=== PATIENT | female | born 1995 | race African-American/Black ===

== ENCOUNTER 2017-02-22 21:46 | Emergency (ER) | payer MEDICAID, OTHER ==
[~2017-02-22] VITALS: Ht 160 cm; Wt 66.0 kg
[2017-02-22] MEDS ORDERED: SODIUM CHLORIDE 0.9% 1,000 ML IV ONE (22:31)
[2017-02-22 23:27] LABS: CLARITY URINE CLOUDY (CLEAR); COLOR URINE YELLOW (YELLOW); GLUCOSE URINE NEGATIVE (NEGATIVE); KETONES URINE 1+ (NEGATIVE); LEUKOCYTE ESTERASE URINE 3+ (NEGATIVE); NITRITE URINE NEGATIVE (NEGATIVE); OCCULT BLOOD URINE TRACE (NEGATIVE); PROTEIN URINE NEGATIVE (NEGATIVE); SPECIFIC GRAVITY URINE 1.016 (1.005-1.030); UROBILINOGEN URINE 0.2 E.U./dL (0.2-1.0)
[2017-02-22 23:40] LABS: *BARBITURATES SCREEN URINE NEGATIVE (NEGATIVE); *BENZODIAZEPINES SCREEN URINE NEGATIVE (NEGATIVE); *COCAINE SCREEN URINE NEGATIVE (NEGATIVE); METHADONE URINE SCREEN NEGATIVE (NEGATIVE); OPIATES URINE SCREEN NEGATIVE (NEGATIVE); PHENCYCLIDINE URINE SCREEN NEGATIVE (NEGATIVE)
[2017-02-22 23:49] LABS: HEMATOCRIT. 42.5 % (36.0-48.0); MEAN CORPUSCULAR HEMOGLOBIN 28.7 pg (28.0-32.0); MEAN CORPUSCULAR VOLUME 87.4 fL (81.0-99.0); MEAN PLATELET VOLUME 10.4 fl (7.4-10.4); PLATELET 207 x1000/uL (130-400); RED BLOOD CELL COUNT 4.87 mill/uL (4.2-5.4); RED CELL DISTRIBUTION WIDTH 14.3 % (11.6-14.6)
[2017-02-22 23:58] LABS: CHLORIDE 105 mEq/L (98-107)
[2017-02-22 23:58] LABS: *AMPHETAMINES SCREEN URINE PRESUMTIVE POSITIVE (NEGATIVE); CANNABINOID URINE SCREEN PRESUMTIVE POSITIVE (NEGATIVE)
[2017-02-23 00:06] LABS: CARBON DIOXIDE 22 mEq/L (21-32); ETHANOL BLOOD < 10 mg/dL
[2017-02-23 00:49] LABS: PLATELET ESTIMATE NORMAL
[2017-02-23 05:36] VITALS: BP 120/68
== END 2017-02-23 17:04 | disposition home or self-care (01) ==
LOC: ER 22:20
DX: F31.9 Bipolar disorder, unspecified (principal); R45.851 Suicidal ideations; F43.10 Post-traumatic stress disorder, unspecified; F17.200 Nicotine dependence, unspecified, uncomplicated; R44.0 Auditory hallucinations; F12.10 Cannabis abuse, uncomplicated; F15.10 Other stimulant abuse, uncomplicated; Z98.890 Other specified postprocedural states
CPT/HCPCS: 36415; 80053; 80305; 80307; 80329; 81001; 81025; 85025; 93005; 96360; 96361; 99285; G0482; J7030; Z7610

== ENCOUNTER 2022-01-17 12:46 | Emergency (ER) | payer MEDICAID ==
[~2022-01-17] VITALS: Ht 165.1 cm; Wt 70.0 kg
[2022-01-17 12:49] VITALS: BP 121/76
[2022-01-17] MEDS ORDERED: ACETAMINOPHEN 325MG TABLET PO ONE (13:30)
== END 2022-01-17 14:20 | disposition home or self-care (01) ==
LOC: ER 12:46
DX: M25.561 Pain in right knee (principal); F12.10 Cannabis abuse, uncomplicated; F15.10 Other stimulant abuse, uncomplicated; Z98.890 Other specified postprocedural states
CPT/HCPCS: 73562; 81025; 99283

== ENCOUNTER 2024-09-12 16:19 | Emergency (ER) | payer MEDICAID, OTHER ==
[~2024-09-12] VITALS: Ht 160 cm; Wt 45.3 kg
[2024-09-12 16:21] VITALS: BP 104/59; PULSE 87; RESP 16; TEMP 36.7; O2SAT 100
== END 2024-09-12 18:19 | disposition left against medical advice (07) ==
LOC: ER 16:19
DX: R51.9 Headache, unspecified (principal); Z53.21 Procedure and treatment not carried out due to patient leaving prior to being seen by health care provider

== ENCOUNTER 2024-09-16 12:00 | Emergency (ER) | payer MEDICAID ==
[~2024-09-16] VITALS: Ht 162.6 cm; Wt 59.0 kg
[2024-09-16 12:36] LABS: CLARITY URINE CLEAR (CLEAR); COLOR URINE YELLOW (YELLOW); GLUCOSE URINE NEGATIVE (NEGATIVE); KETONES URINE TRACE (NEGATIVE); LEUKOCYTE ESTERASE URINE 1+ (NEGATIVE); NITRITE URINE POSITIVE (NEGATIVE); OCCULT BLOOD URINE NEGATIVE (NEGATIVE); PH URINE 5.5 (4.5-8.0); PROTEIN URINE NEGATIVE (NEGATIVE); SPECIFIC GRAVITY URINE 1.017 (1.005-1.030); UROBILINOGEN URINE 1.0 E.U./dL (0.2-1.0)
[2024-09-16 12:42] LABS: BASOPHILS % 0.2 % (0.0-2.0); EOSINOPHILS % 2.3 % (0.0-5.0); HEMATOCRIT. 36.5 % (36.0-48.0); HEMOGLOBIN. 12.4 g/dL (12.0-16.0); LYMPHOCYTES % 25.5 % (20.0-50.0); MEAN PLATELET VOLUME 9.5 fl (7.4-10.4); MONOCYTES % 13.1 % (2.0-8.0); NEUTROPHILS % 58.9 % (40.0-76.0); PLATELET 212 x1000/uL (130-400); RED BLOOD CELL COUNT 3.92 mill/uL (4.2-5.4); RED CELL DISTRIBUTION WIDTH 13.1 % (11.6-14.6)
[2024-09-16 12:50] LABS: *AMPHETAMINES SCREEN URINE PRESUMPTIVE POSITIVE (NEGATIVE); *BARBITURATES SCREEN URINE NEGATIVE (NEGATIVE); *BENZODIAZEPINES SCREEN URINE NEGATIVE (NEGATIVE); *COCAINE SCREEN URINE PRESUMPTIVE POSITIVE (NEGATIVE)
[2024-09-16 12:51] LABS: CANNABINOID URINE SCREEN NEGATIVE (NEGATIVE); ECSTASY MDMA SCREEN URINE NEGATIVE (NEGATIVE); METHADONE URINE SCREEN NEGATIVE (NEGATIVE); OPIATES URINE SCREEN NEGATIVE (NEGATIVE); PHENCYCLIDINE URINE SCREEN PRESUMTIVE POSITIVE (NEGATIVE)
[2024-09-16 12:54] LABS: CREATININE 0.8 mg/dL (0.6-1.0); ETHANOL BLOOD 34 mg/dL (<10); UREA NITROGEN BLOOD 10 mg/dL (9-23)
[2024-09-16 12:58] LABS: HCG SCREEN NEGATIVE
[2024-09-16 13:00] LABS: SQUAMOUS EPITHELIAL CELL URINE 2+ /lpf (RARE/1+)
[2024-09-16 13:01] LABS: BACTERIA URINE 3+
[2024-09-16 13:03] LABS: RBC URINE NONE SEEN /hpf (0-2)
[2024-09-16 13:05] LABS: YEAST URINE NONE SEEN
[2024-09-16 13:07] LABS: ASPARTATE AMINOTRANSFERASE 19 IU/L (<34); BILIRUBIN DIRECT 0.1 mg/dL (<=3.0); BILIRUBIN TOTAL 0.4 mg/dL (0.1-1.0); PROTEIN TOTAL 7.5 g/dL (6.0-8.3)
[2024-09-16] MEDS: CEPHALEXIN 250MG CAPSULE PO SCH (14:30)
[2024-09-16 15:37] VITALS: O2SAT 99
[2024-09-16] MEDS: MIDAZOLAM HCL 2 MG/2 ML VIAL IM ONE (15:37)
[2024-09-16] MEDS: HALOPERIDOL LACTATE 5MG/ML VIAL IM ONE (15:38)
[2024-09-16] MEDS: POTASSIUM CHLORIDE 20MEQ/PACKET PO ONE ×2 (15:38→21:50)
[2024-09-17] MEDS: RISPERIDONE 0.5MG TABLET PO SCH (11:30)
[2024-09-17] MEDS ORDERED: HYDROXYZINE 25MG TABLET PO PRN (11:30)
[2024-09-18 19:42] VITALS: BP 122/74; PULSE 80; RESP 18; TEMP 37; O2SAT 100
== END 2024-09-18 20:15 ==
LOC: ER 12:00
DX: R46.2 Strange and inexplicable behavior (principal); N39.0 Urinary tract infection, site not specified; E87.6 Hypokalemia; R51.9 Headache, unspecified; Z79.899 Other long term (current) drug therapy; Z20.822 Contact with and (suspected) exposure to COVID-19; W01.0XXA Fall on same level from slipping, tripping and stumbling without subsequent striking against object, initial encounter; Y93.89 Activity, other specified; Y92.89 Other specified places as the place of occurrence of the external cause; Y99.8 Other external cause status
CPT/HCPCS: 80076; 80305; 80048; 81003; 80307; 80329; 80320; 84703; 85025; 87086; 87186; 87077; 36415; 70450; 93005; 96372; 99291; 87426; J1630; J2250; Z7610 ×2; A4606; G0480